=== PATIENT | male | born 1995 | race Asian ===

== ENCOUNTER 2018-02-18 14:20 | Inpatient (IN) | payer MEDICAID ==
[~2018-02-18] VITALS: Ht 172.7 cm; Wt 83.9 kg
[2018-02-18] MEDS ORDERED: NKM (14:29)
--- NOTE | 2018-02-18 14:31 | Emergency Room Report ---
History of Present Illness General Chief Complaint: Overdose Source: Patient, EMS Present Illness HPI Paramedics were called to residence. Initially the call was for altered and the mother was performing CPR on the patient as he was unresponsive. Paramedics found the patient had pinpoint pupils. IV was established and Narcan 2 mg given IV. The patient woke up after this. Accu-Chek in the field was 115. The patient admits to taking 2 [place]. He took them because he has back pain. He denies taking this medication for self-harm. He denies taking any other medication at this time. He denies seizures. The patient denies chest pain shortness of breath headache. He has chronic back pain. No dysuria. No head ache, rashes, NVD, cough, sore throat, extremity pain, trauma. Allergies: Coded Allergies: No Known Allergies (Unverified , 02/18/18) Patient History Past Medical History: see triage record Social History: Reports: smoking, drug use Social History Narrative lives with mother Reviewed Nursing Documentation: PMH: Agreed; PSxH: Agreed Review of Systems All Other Systems: negative except mentioned in HPI Physical Exam Vital Signs Date Time Temp Pulse Resp B/P (MAP) Pulse Ox O2 Delivery O2 Flow Rate FiO2 02/18/18 14:26 98.8 132 16 123/72 99 Non-Rebreather 12.0 98.8 Sp02 EP Interpretation: reviewed, normal, other - RA is 78% which is interpreted as low by me General Appearance: well appearing, no apparent distress, GCS 15 Head: normocephalic Eyes: bilateral eye normal inspection, bilateral eye PERRL ENT: moist mucus membranes - no tongue trauma Neck: supple Respiratory: lungs clear, decreased breath sounds Cardiovascular #1: tachycardia Cardiovascular #2: 2+ radial (R) Gastrointestinal: normal inspection, normal bowel sounds, non tender, no mass, non-distended Musculoskeletal: back normal, normal range of motion Neurologic: alert, oriented x3, motor strength/tone normal, DTRs symmetric, sensory intact, cerebellar normal, speech normal Psychiatric: no suicidal/homicidal ideation, depressed affect Skin: warm/dry, other - excoriations lower legs Medical Decision Making Diagnostic Impression: Primary Impression: Drug overdose Qualified Codes: T50.901A - Poisoning by unspecified drugs, medicaments and biological substances, accidental (unintentional), initial encounter Additional Impression: Right lower lobe pneumonia Qualified Codes: J69.0 - Pneumonitis due to inhalation of food and vomit ER Course Patient presents after a period of altered mentation which resolved with Narcan. Differential includes narcotic overdose, sedimentation overdose, polypharmacy overdose, electrolyte imbalance, aspiration. Evaluation with EKG EKG, chest x-ray and labs. Patient will be treated with IV hydration. He'll be observed on a cardiac/vascular sonographer for respiratory depression and Narcan will be repeated if necessary. He denies suicidal intent and psychiatric evaluation is not indicated at this time. EKG with ST. CXR with RLL infiltrate. WBC elevated. Lactate normal. Tox + for THC, neg for opiates and acetaminophen. Patient with hypoxia. Antibiotics begun for probable aspiration pneumonia. As tox neg, might have had other substances on board (or just not time for showing up in tox screen). Fluids given for possible early sepsis. Discussed with mother. Patient with variable compliance with O2. Patient admitted telemetry Dr. Lance. Laboratory Tests Test 02/18/18 14:23 02/18/18 15:15 White Blood Count 25.7 K/UL (4.8-10.8) *H Red Blood Count 5.36 M/UL (4.70-6.10) Hemoglobin 16.8 G/DL (14.2-18.0) Hematocrit 47.0 % (42.0-52.0) Mean Corpuscular Volume 88 FL (80-99) Mean Corpuscular Hemoglobin 31.4 PG (27.0-31.0) H Mean Corpuscular Hemoglobin Concent 35.8 G/DL (32.0-36.0) Red Cell Distribution Width 11.1 % (11.6-14.8) L Platelet Count 315 K/UL (150-450) Mean Platelet Volume 6.7 FL (6.5-10.1) Neutrophils (%) (Auto) % (45.0-75.0) Lymphocytes (%) (Auto) % (20.0-45.0) Monocytes (%) (Auto) % (1.0-10.0) Eosinophils (%) (Auto) % (0.0-3.0) Basophils (%) (Auto) % (0.0-2.0) Differential Total Cells Counted 100 Neutrophils % (Manual) 81 % (45-75) H Lymphocytes % (Manual) 7 % (20-45) L Monocytes % (Manual) 5 % (1-10) Eosinophils % (Manual) 0 % (0-3) Basophils % (Manual) 0 % (0-2) Band Neutrophils 7 % (0-8) Platelet Estimate Adequate Platelet Morphology Normal Polychromasia 1+ Sodium Level 143 MMOL/L (136-145) Potassium Level 3.9 MMOL/L (3.5-5.1) Chloride Level 103 MMOL/L (98-107) Carbon Dioxide Level 26 MMOL/L (21-32) Anion Gap 15 mmol/L (5-15) Blood Urea Nitrogen 18 mg/dL (7-18) Creatinine 1.4 MG/DL (0.55-1.30) H Estimate Glomerular Filtration Rate > 60 mL/min (>60) Glucose Level 85 MG/DL (74-106) Calcium Level 8.6 MG/DL (8.5-10.1) Total Bilirubin 0.5 MG/DL (0.2-1.0) Aspartate Amino Transferase (AST) 23 U/L (15-37) Alanine Aminotransferase (ALT) 38 U/L (12-78) Alkaline Phosphatase 73 U/L (46-116) Total Creatine Kinase 93 U/L (26-308) Total Protein 7.3 G/DL (6.4-8.2) Albumin 4.2 G/DL (3.4-5.0) Globulin 3.1 g/dL Albumin/Globulin Ratio 1.1 (1.0-2.7) Salicylates Level < 0.2 ug/mL (2.8-20) L Acetaminophen Level < 2 MCG/ML (10-30) L Serum Alcohol < 3 mg/dL Lactic Acid Level 1.90 mmol/L (0.4-2.0) Urine Opiates Screen Negative (NEGATIVE) Urine Barbiturates Screen Negative (NEGATIVE) Phencyclidine (PCP) Screen Negative (NEGATIVE) Urine Amphetamines Screen Negative (NEGATIVE) Urine Benzodiazepines Screen Negative (NEGATIVE) Urine Cocaine Screen Negative (NEGATIVE) Urine Marijuana (THC) Screen Positive (NEGATIVE) H EKG Diagnostic Results Rate: tachycardiac ST Segments: no acute changes Rhythm Strip Diag. Results EP Interpretation: yes Rhythm: no PVC's, no ectopy, other - ST Chest X-Ray Diagnostic Results Chest X-Ray Diagnostic Results : Chest X-Ray Ordered: Yes # of Views/Limited/Complete: 1 View Indication: Other EP Interpretation: Yes Interpretation: no effusion, no pneumothorax, other - RLL infiltrate Impression: Other Electronically Signed by: Electronically signed by Tacho Martinez MD Last Vital Signs Date Time Temp Pulse Resp B/P (MAP) Pulse Ox O2 Delivery O2 Flow Rate FiO2 02/18/18 22:40 Simple Mask 10.0 02/18/18 22:15 97.9 94 19 100/60 94 97.9 Status: improved Disposition: ADMITTED INPATIENT Condition: Serious Tacho Martinez MD Feb 18, 2018 14:30
--- NOTE | 2018-02-18 14:49 | Diagnostic Imaging Report ---
Indication: Dyspnea Comparison: None A single view chest radiograph was obtained. Findings: Hazy infiltrate noted in the right lung. Pneumonia suspected. Correlate clinically. Bones are unremarkable. No pleural effusion seen. IMPRESSION: Suspected pneumonia at the right lung base
[2018-02-18 14:53] VITALS: BP 123/72
[2018-02-18 15:14] LABS: HEMOGLOBIN 16.8 G/DL (14.2-18.0); MEAN CORPUSCULAR VOLUME 88 FL (80-99); PLATELET COUNT 315 K/UL (150-450); RED BLOOD COUNT 5.36 M/UL (4.70-6.10); RED CELL DISTRIBUTION WIDTH 11.1 % (11.6-14.8)
[2018-02-18 15:24] LABS: ANION GAP 15 mmol/L (5-15); BLOOD UREA NITROGEN 18 mg/dL (7-18); CALCIUM 8.6 MG/DL (8.5-10.1); CARBON DIOXIDE 26 MMOL/L (21-32); CHLORIDE 103 MMOL/L (98-107); CREATININE 1.4 MG/DL (0.55-1.30); POTASSIUM 3.9 MMOL/L (3.5-5.1); SODIUM 143 MMOL/L (136-145)
[2018-02-18 15:25] LABS: WHITE BLOOD COUNT 25.7 K/UL (4.8-10.8)
[2018-02-18] MEDS ORDERED: cefTRIAXone 1 GM in NS 55 ML IVPB ONE (15:30)
[2018-02-18 16:00] VITALS: BP 84/51
[2018-02-18 16:03] LABS: ALANINE AMINOTRANSFERASE 38 U/L (12-78); ALKALINE PHOSPHATASE 73 U/L (46-116); ASPARTATE AMINO TRANSFERASE 23 U/L (15-37); BILIRUBIN,TOTAL 0.5 MG/DL (0.2-1.0); CREATINE KINASE 93 U/L (26-308)
[2018-02-18 16:04] LABS: ALBUMIN 4.2 G/DL (3.4-5.0); ALBUMIN/GLOBULIN RATIO 1.1 (1.0-2.7)
[2018-02-18 19:00] VITALS: BP 97/61
[2018-02-18 22:15] VITALS: BP 100/60
[2018-02-18] MEDS ORDERED: Acetaminophen 500mg (ES) tab ORAL PRN (23:45)
[2018-02-19] VITALS: BP 96/69
[2018-02-19 04:00] VITALS: BP 113/78
[2018-02-19 07:34] LABS: ALANINE AMINOTRANSFERASE 29 U/L (12-78); ALBUMIN 3.2 G/DL (3.4-5.0); ALBUMIN/GLOBULIN RATIO 1.2 (1.0-2.7); ALKALINE PHOSPHATASE 54 U/L (46-116); ANION GAP 11 mmol/L (5-15); ASPARTATE AMINO TRANSFERASE 15 U/L (15-37); BILIRUBIN,TOTAL 0.9 MG/DL (0.2-1.0); BLOOD UREA NITROGEN 12 mg/dL (7-18); CARBON DIOXIDE 23 MMOL/L (21-32); CHLORIDE 104 MMOL/L (98-107); CREATININE 0.9 MG/DL (0.55-1.30); POTASSIUM 3.8 MMOL/L (3.5-5.1); SODIUM 138 MMOL/L (136-145)
[2018-02-19 07:37] LABS: BASOPHILS % (AUTO) 0.3 % (0.0-2.0); EOSINOPHILS % (AUTO) 0.8 % (0.0-3.0); HEMATOCRIT 34.4 % (42.0-52.0); HEMOGLOBIN 12.3 G/DL (14.2-18.0); MEAN CORPUSCULAR VOLUME 86 FL (80-99); MONOCYTES % (AUTO) 4.1 % (1.0-10.0); NEUTROPHILS % (AUTO) 84.7 % (45.0-75.0); PLATELET COUNT 212 K/UL (150-450); RED CELL DISTRIBUTION WIDTH 10.6 % (11.6-14.8); WHITE BLOOD COUNT 14.3 K/UL (4.8-10.8)
[2018-02-19 08:00] VITALS: BP 119/78
--- NOTE | 2018-02-19 10:58 | Consultation ---
Consult Note Consult Note HPI Paramedics were called to residence. Initially the call was for altered and the mother was performing CPR on the patient as he was unresponsive. Paramedics found the patient had pinpoint pupils. IV was established and Narcan 2 mg given IV. The patient woke up after this. Accu-Chek in the field was 115. The patient admits to taking 2 [place]. He took them because he has back pain. He denies taking this medication for self-harm. He denies taking any other medication at this time. He denies seizures. The patient denies chest pain shortness of breath headache. He has chronic back pain. No dysuria. No head ache, rashes, NVD, cough, sore throat, extremity pain, trauma. Allergies: Coded Allergies: No Known Allergies (Unverified , 02/18/18) interviewed examined data reviewed Assessment/Plan Dehydration Low BP on presentation Episode of unresponsiveness ! MJ abuse IV fluid observe on monitor Vaughn Arceo MD Feb 19, 2018 10:58
[2018-02-19 11:56] LABS: APPEARANCE,URINE CLEAR; BILIRUBIN, URINE NEGATIVE (NEGATIVE); COLOR,URINE PALE YELLOW; GLUCOSE, URINE (UA) NEGATIVE (NEGATIVE); KETONES,URINE 2+ (NEGATIVE); LEUKOCYTE ESTERASE ,URINE NEGATIVE (NEGATIVE); NITRITE,URINE NEGATIVE (NEGATIVE); PH,URINE 6 (4.5-8.0); PROTEIN,URINE NEGATIVE (NEGATIVE); UROBILINOGEN,URINE NORMAL MG/DL (0.0-1.0)
--- NOTE | 2018-02-19 11:57 | Consultation ---
Consult Note Assessment/Plan DICT # [id number] Anders Clark MD Feb 19, 2018 11:57
[2018-02-19 12:00] VITALS: BP 118/72
--- NOTE | 2018-02-19 12:02 | Consultation ---
History of Present Illness General Date patient seen: Feb 19, 2018 Chief Complaint: Overdose Present Illness HPI 22 yo male who has been in [place] for the past 14years. the pt was bib paramedics who were called to residence. the pt was altered and the mother was performing CPR on the patient as he was unresponsive. the pt admitted in er that he took [place] and was given Narcan. the pt denied to this md that he took any pills or drugs. the pt stated that he smokes mj regularly. the pt denied past psych hx. the pt denied taking psych meds. the pt stated that he was not suicidal nor homicidal. The pt denied depressive, manic or psychotic sxs. the pt is superficial and stated that he has a good life and he goes to [facility]. Allergies: Coded Allergies: No Known Allergies (Unverified , 02/18/18) Medication History Scheduled No Known Medications* (NKM - No Known Medications*), 0 ., (Reported) Patient History History Provided By: Patient, Medical Record, PMD Healthcare decision maker N Resuscitation status Full Code Advanced Directive on File Past Medical/Surgical History Past Medical/Surgical History: (1) Drug overdose (2) Right lower lobe pneumonia Review of Systems Psychiatric: Reports: emotional problems Physical Exam General Appearance: no apparent distress, alert Neurologic: alert, oriented x 3, responsive Last 24 Hour Vital Signs Date Time Temp Pulse Resp B/P (MAP) Pulse Ox O2 Delivery O2 Flow Rate FiO2 02/19/18 10:04 Room Air 02/19/18 08:00 96 02/19/18 08:00 98.1 96 16 119/78 (92) 93 98.1 02/19/18 04:00 87 02/19/18 04:00 97.5 87 17 113/78 (90) 93 97.5 02/19/18 00:00 97.5 86 17 96/69 (78) 98 97.5 02/19/18 00:00 107 02/18/18 23:00 95 02/18/18 22:40 Simple Mask 10.0 02/18/18 22:15 97.9 94 19 100/60 94 Simple Mask 10.0 97.9 02/18/18 22:15 97.9 94 19 100/60 94 Simple Mask 10.0 97.9 02/18/18 19:00 93 19 97/61 93 Simple Mask 10.0 02/18/18 16:00 112 10 84/51 99 Simple Mask 10.0 02/18/18 14:53 98.8 14 123/72 99 Simple Mask 10.0 98.8 02/18/18 14:49 130 14 Simple Mask 10.0 02/18/18 14:26 98.8 132 16 123/72 99 Non-Rebreather 12.0 98.8 Laboratory Tests Test 02/18/18 14:23 02/18/18 15:15 02/19/18 06:40 White Blood Count 25.7 K/UL (4.8-10.8) *H 14.3 K/UL (4.8-10.8) H Red Blood Count 5.36 M/UL (4.70-6.10) 4.00 M/UL (4.70-6.10) L Hemoglobin 16.8 G/DL (14.2-18.0) 12.3 G/DL (14.2-18.0) L Hematocrit 47.0 % (42.0-52.0) 34.4 % (42.0-52.0) L Mean Corpuscular Volume 88 FL (80-99) 86 FL (80-99) Mean Corpuscular Hemoglobin 31.4 PG (27.0-31.0) H 30.7 PG (27.0-31.0) Mean Corpuscular Hemoglobin Concent 35.8 G/DL (32.0-36.0) 35.7 G/DL (32.0-36.0) Red Cell Distribution Width 11.1 % (11.6-14.8) L 10.6 % (11.6-14.8) L Platelet Count 315 K/UL (150-450) 212 K/UL (150-450) Mean Platelet Volume 6.7 FL (6.5-10.1) 6.6 FL (6.5-10.1) Neutrophils (%) (Auto) % (45.0-75.0) 84.7 % (45.0-75.0) H Lymphocytes (%) (Auto) % (20.0-45.0) 10.0 % (20.0-45.0) L Monocytes (%) (Auto) % (1.0-10.0) 4.1 % (1.0-10.0) Eosinophils (%) (Auto) % (0.0-3.0) 0.8 % (0.0-3.0) Basophils (%) (Auto) % (0.0-2.0) 0.3 % (0.0-2.0) Differential Total Cells Counted 100 Neutrophils % (Manual) 81 % (45-75) H Lymphocytes % (Manual) 7 % (20-45) L Monocytes % (Manual) 5 % (1-10) Eosinophils % (Manual) 0 % (0-3) Basophils % (Manual) 0 % (0-2) Band Neutrophils 7 % (0-8) Platelet Estimate Adequate Platelet Morphology Normal Polychromasia 1+ Sodium Level 143 MMOL/L (136-145) 138 MMOL/L (136-145) Potassium Level 3.9 MMOL/L (3.5-5.1) 3.8 MMOL/L (3.5-5.1) Chloride Level 103 MMOL/L (98-107) 104 MMOL/L (98-107) Carbon Dioxide Level 26 MMOL/L (21-32) 23 MMOL/L (21-32) Anion Gap 15 mmol/L (5-15) 11 mmol/L (5-15) Blood Urea Nitrogen 18 mg/dL (7-18) 12 mg/dL (7-18) Creatinine 1.4 MG/DL (0.55-1.30) H 0.9 MG/DL (0.55-1.30) Estimat Glomerular Filtration Rate > 60 mL/min (>60) > 60 mL/min (>60) Glucose Level 85 MG/DL (74-106) 83 MG/DL (74-106) Calcium Level 8.6 MG/DL (8.5-10.1) 8.0 MG/DL (8.5-10.1) L Total Bilirubin 0.5 MG/DL (0.2-1.0) 0.9 MG/DL (0.2-1.0) Aspartate Amino Transf (AST/SGOT) 23 U/L (15-37) 15 U/L (15-37) Alanine Aminotransferase (ALT/SGPT) 38 U/L (12-78) 29 U/L (12-78) Alkaline Phosphatase 73 U/L (46-116) 54 U/L (46-116) Total Creatine Kinase 93 U/L (26-308) Total Protein 7.3 G/DL (6.4-8.2) 5.8 G/DL (6.4-8.2) L Albumin 4.2 G/DL (3.4-5.0) 3.2 G/DL (3.4-5.0) L Globulin 3.1 g/dL 2.6 g/dL Albumin/Globulin Ratio 1.1 (1.0-2.7) 1.2 (1.0-2.7) Salicylates Level < 0.2 ug/mL (2.8-20) L Acetaminophen Level < 2 MCG/ML (10-30) L Serum Alcohol < 3 mg/dL Lactic Acid Level 1.90 mmol/L (0.4-2.0) Urine Opiates Screen Negative (NEGATIVE) Urine Barbiturates Screen Negative (NEGATIVE) Phencyclidine (PCP) Screen Negative (NEGATIVE) Urine Amphetamines Screen Negative (NEGATIVE) Urine Benzodiazepines Screen Negative (NEGATIVE) Urine Cocaine Screen Negative (NEGATIVE) Urine Marijuana (THC) Screen Positive (NEGATIVE) H Height (Feet): 5 Height (Inches): 8.00 Weight (Pounds): 185 Medications Current Medications Medications (Trade) Dose Ordered Sig/Renetta Route PRN Reason Start Time Stop Time Status Last Admin Dose Admin Acetaminophen (Tylenol) 500 mg Q4H PRN ORAL Mild Pain/Temp > 100.5 02/18/18 23:45 03/20/18 23:44 02/19/18 08:41 Dextrose/ Electrolytes 1,000 ml @ 75 mls/hr [id number] IV 02/19/18 12:00 03/21/18 11:59 Assessment/Plan Problem List: (1) Substance abuse ICD Codes: F19.10 - Other psychoactive substance abuse, uncomplicated SNOMED: 44129251 Status: stable Assessment/Plan no meds at this time the pt is not at imminent danger to self dc the sitter. the mother is maltese speaking. the nurse will speak to Wally Espinosa MD Feb 19, 2018 12:02
[2018-02-19] MEDS ORDERED: LEVAQUIN500 MG ORAL (15:33)
--- NOTE | 2018-02-19 16:34 | Consultation ---
Consult Note Consult Note Heme/Onc Consult DOS: 02/19/2018 NITHIN QUINN: C[place] RFC: Leukocytosis HPI 22 y old male, decent, apparently paramedics were called to residence. Initially the call was for altered and the mother was performing CPR on the patient as he was unresponsive. Paramedics found the patient had pinpoint pupils. IV was established and Narcan 2 mg given IV. The patient woke up after this. Accu-Chek in the field was 115. The patient admits to taking 2 [place]. He took them because he has back pain. He denies taking this medication for self-harm. denies taking any other medication at this time. He denies seizures. The patient denies chest pain shortness of breath headache. He has chronic back pain. No dysuria. No head ache, rashes, NVD, cough, sore throat, extremity pain, trauma. Noted to have leukocytosis and heme was consulted. Allergies: No Known Allergies (Unverified , 02/18/18) Patient History Past Medical History: see triage record Social History: Reports: smoking, drug use Social History Narrative lives with mother Reviewed Nursing Documentation: PMH: Agreed; PSxH: Agreed ER ROS - General Review of Systems All Other Systems: negative except mentioned in HPI ER Physical Exam - General Physical Exam Last 24 Hour Vital Signs Date Time Temp Pulse Resp B/P (MAP) Pulse Ox O2 Delivery O2 Flow Rate FiO2 02/19/18 12:00 86 02/19/18 12:00 98.1 81 16 118/72 (87) 92 98.1 02/19/18 10:04 Room Air 02/19/18 08:00 96 02/19/18 08:00 98.1 96 16 119/78 (92) 93 98.1 02/19/18 04:00 87 02/19/18 04:00 97.5 87 17 113/78 (90) 93 97.5 02/19/18 00:00 97.5 86 17 96/69 (78) 98 97.5 02/19/18 00:00 107 02/18/18 23:00 95 02/18/18 22:40 Simple Mask 10.0 02/18/18 22:15 97.9 94 19 100/60 94 Simple Mask 10.0 97.9 02/18/18 22:15 97.9 94 19 100/60 94 Simple Mask 10.0 97.9 02/18/18 19:00 93 19 97/61 93 Simple Mask 10.0 Sp02 EP Interpretation: reviewed, normal, other - RA is 78% which is interpreted as low by me General Appearance: well appearing Head: normocephalic Eyes: bilateral eye normal inspection, bilateral eye PERRL ENT: moist mucus membranes - no tongue trauma Neck: supple Respiratory: lungs clear, low breath sounds Cardiovascular #1: tachycardia Gastrointestinal: normal inspection, normal bowel sounds, non tender, no mass and nd Musculoskeletal: back normal, normal range of motion Neurologic: alert, oriented x3, motor strength/tone normal, DTRs symm Psychiatric: no suicidal/homicidal ideation, depressed affect Skin: warm/dry, other - excoriations lower legs Laboratory Tests Test 02/19/18 06:40 02/19/18 11:47 White Blood Count 14.3 K/UL (4.8-10.8) H Red Blood Count 4.00 M/UL (4.70-6.10) L Hemoglobin 12.3 G/DL (14.2-18.0) L Hematocrit 34.4 % (42.0-52.0) L Mean Corpuscular Volume 86 FL (80-99) Mean Corpuscular Hemoglobin 30.7 PG (27.0-31.0) Mean Corpuscular Hemoglobin Concent 35.7 G/DL (32.0-36.0) Red Cell Distribution Width 10.6 % (11.6-14.8) L Platelet Count 212 K/UL (150-450) Mean Platelet Volume 6.6 FL (6.5-10.1) Neutrophils (%) (Auto) 84.7 % (45.0-75.0) H Lymphocytes (%) (Auto) 10.0 % (20.0-45.0) L Monocytes (%) (Auto) 4.1 % (1.0-10.0) Eosinophils (%) (Auto) 0.8 % (0.0-3.0) Basophils (%) (Auto) 0.3 % (0.0-2.0) Sodium Level 138 MMOL/L (136-145) Potassium Level 3.8 MMOL/L (3.5-5.1) Chloride Level 104 MMOL/L (98-107) Carbon Dioxide Level 23 MMOL/L (21-32) Anion Gap 11 mmol/L (5-15) Blood Urea Nitrogen 12 mg/dL (7-18) Creatinine 0.9 MG/DL (0.55-1.30) Estimat Glomerular Filtration Rate > 60 mL/min (>60) Glucose Level 83 MG/DL (74-106) Calcium Level 8.0 MG/DL (8.5-10.1) L Total Bilirubin 0.9 MG/DL (0.2-1.0) Aspartate Amino Transf (AST/SGOT) 15 U/L (15-37) Alanine Aminotransferase (ALT/SGPT) 29 U/L (12-78) Alkaline Phosphatase 54 U/L (46-116) Total Protein 5.8 G/DL (6.4-8.2) L Albumin 3.2 G/DL (3.4-5.0) L Globulin 2.6 g/dL Albumin/Globulin Ratio 1.2 (1.0-2.7) Urine Color Pale yellow Urine Appearance Clear Urine pH 6 (4.5-8.0) Urine Specific [place] 1.010 (1.005-1.035) Urine Protein Negative (NEGATIVE) Urine Glucose (UA) Negative (NEGATIVE) Urine Ketones 2+ (NEGATIVE) H Urine Blood Negative (NEGATIVE) Urine Nitrite Negative (NEGATIVE) Urine Bilirubin Negative (NEGATIVE) Urine Urobilinogen Normal MG/DL (0.0-1.0) Urine Leukocyte Esterase Negative (NEGATIVE) Urine RBC 0 /HPF (0 - 0) Urine WBC 0-2 /HPF (0 - 0) Urine Squamous Epithelial Cells Occasional /LPF Urine Bacteria Occasional /HPF (NONE) Assess and Recs: # Leukocytosis is likely related to overdose, stress reaction. Could also be due to thc use --> smear reviewed, no abnml noted, no blasts --> meds reviewed as well, no steriods given --> improving --> recheck in 1 week # Drug overdose --> psych outpatient monitoring # Right lower lobe pneumonia, potentially aspiration pna --> on abx as per id # Dehydration -- given iVF Greatly appreciate consultation! Tin Holt MD Feb 19, 2018 16:34
--- NOTE | 2018-02-19 17:00 | Consultation ---
DATE OF CONSULTATION: 02/19/2018 PULMONARY CONSULTATION CONSULTING PHYSICIAN: Anders Clark M.D. REFERRING PHYSICIAN: Kd Lance M.D. REASON FOR CONSULTATION: Possible overdose, history of pneumonia. HISTORY OF PRESENT ILLNESS: The patient is a 22-year-old male with unknown prior medical history, who was noted to be altered. His mother performed CPR. The patient was unresponsive. Paramedics arrived on the scene. The patient had pinpoint pupils. He was given Narcan with improvement in his mental status. He admitted to taking 2 [place]. At the time of my evaluation, he has no remembrance of the incident and denies any drug use other than marijuana. He also smokes cigarettes. Denies alcohol use. Currently, he states he is tired and wants to go home, but has no specific complaints. He denies any suicidal ideation, homicidal ideation, audiovisual hallucinations. He denies any depression. Denies any fevers, chills, headache, dizziness, nausea, vomiting, diarrhea, constipation, abdominal pain, or urinary complaints. Since presenting to the hospital, he has been hemodynamically stable except for mild periods of hypotension. He has been saturating well on room air. His labs were initially remarkable for leukocytosis with white count of 25.7, which has since improved. He also had acute kidney injury with creatinine of 1.4, which has since resolved. He has evidence of protein-calorie malnutrition. His U-tox was positive for marijuana. Chest x-ray done in the emergency department showed an infiltrate at the right base. PAST MEDICAL HISTORY: None. PAST SURGICAL HISTORY: None. ALLERGIES: No known drug allergies. MEDICATIONS: Prior to admission, medications none. SOCIAL HISTORY: He is a current daily smoker. Smokes marijuana as well. Denies other drugs or alcohol. FAMILY HISTORY: Noncontributory. REVIEW OF SYSTEMS: Negative other than history of present illness. PHYSICAL EXAMINATION: VITAL SIGNS: Temperature 98.1, pulse 96, blood pressure 119/78, respiratory rate 16, and saturating 96% on room air. GENERAL: He is a well-developed and well-nourished male in no acute distress. Awake, alert, and oriented x3. HEENT: Normocephalic and atraumatic. Oropharynx is clear. Moist mucous membranes. NECK: Supple without lymphadenopathy or JVD. CHEST: Clear to auscultation bilaterally. No wheezing, rales, or rhonchi. HEART: Regular rate and rhythm. No murmurs, rubs, or gallops. ABDOMEN: Soft, nontender, and nondistended. EXTREMITIES: No cyanosis, clubbing, or edema. ANCILLARY DATA: White count 25.7 on presentation and 14.3 now, hemoglobin 12.3, hematocrit 34, and platelet count 212,000. Sodium 138, potassium 3.8, chloride 104, bicarbonate 23, BUN of 12, creatinine 0.9, glucose 83, lactic acid 1.9, calcium 8.0. LFTs within normal limits. Total protein 5.8. Albumin 3.2. Marijuana screen is positive. Chest x-ray, some atelectasis versus infiltrate at the right base. ASSESSMENT: The patient is a 22-year-old male smoker with history of marijuana use as well, presenting with loss of consciousness and CPR given at the field. His symptoms improved with Narcan, likely secondary to opiate ingestion. He also has a right lower lobe infiltrate and leukocytosis, which has improved with antibiotic treatment. PROBLEM LIST: 1. Altered mental status, likely secondary to opiates, improved with Narcan. 2. Right lower lobe infiltrate, pneumonia, possible aspiration. 3. Marked leukocytosis, likely secondary to above, improved. 4. Acute kidney injury, likely secondary to dehydration and prerenal azotemia, resolved. 5. History of marijuana use. TREATMENT PLAN: 1. Optimize pulmonary hygiene/mobilize as tolerated. 2. P.r.n. O2. 3. Continue Levaquin as this was given in the ER, if any signs of worsening respiratory infection, would add Flagyl for aspiration coverage. 4. Monitor mental status. 5. Consider social work and psychiatry evaluation. 6. Monitor volumes and renal function, continue IV fluids, follow renal recommendations. 7. DVT prophylaxis, heparin subcutaneous. 8. Infiltrates to be followed to resolution. We will get a repeat chest x-ray as an outpatient in 1 week. If persistent infiltrate at that point, we would consider CT scan of the chest. Dr. Lance, thank you for allowing me to assist in the care of your patient. If I may be of any assistance in the future, please do not hesitate to ask. Anders Clark M.D. DR: Jc JOB#: [id number] CC:
--- NOTE | 2018-02-19 18:29 | Cardiology Report ---
APPROVED REPORT EKG Measurement Heart [id number] Sinus tachycardia Otherwise normal ECG
--- NOTE | 2018-02-19 20:15 | Consultation ---
DATE OF CONSULTATION: 02/19/2018 INFECTIOUS DISEASE CONSULTATION CONSULTING PHYSICIAN: Yunior Santana M.D. PRIMARY ATTENDING PHYSICIAN: Kd Lance M.D. REASON FOR CONSULT: Pneumonia. HISTORY OF PRESENT ILLNESS: The patient is a 22-year-old male, admitted last evening as he was found at home with altered mental status. When paramedics came, mother was doing CPR. He was unresponsive. The patient was given and the patient woke up. The patient admits taking [place] because of back pain, but today he denies taking any medication. He was found to have leukocytosis and infiltrate in chest x-ray. SOCIAL HISTORY: Denies drug abuse. Single. Student. ALLERGIES: No known drug allergies. MEDICATIONS: Getting Tylenol. Got a dose of ceftriaxone and Levaquin in the ER. REVIEW OF SYSTEMS: The patient does not remember anything that happened. He states that the last thing he was remembering is going to bed and found him in the hospital. He has some soreness in the right lower chest. He does not have any fever, coughing, shortness of breath, nausea, vomiting, or dysuria. PHYSICAL EXAMINATION: VITAL SIGNS: Temperature 98.1, pulse 96, and blood pressure 119/78. GENERAL APPEARANCE: Well developed, awake, alert, and oriented x3. HEAD AND NECK: Moore conjunctivae. HEART: S1 and S2, regular. LUNGS: Clear. ABDOMEN: Soft and nontender. EXTREMITIES: He has no edema. LABORATORY AND DIAGNOSTIC DATA: WBC today is 14.3 coming down from 25.7, hemoglobin 12.3, hematocrit 34.4, platelets 212,000. Sodium 138, potassium 3.8, chloride 104, bicarbonate 23, BUN 12, creatinine 0.9, glucose 83, albumin 3.2. Urine toxicology was positive for marijuana. Chest x-ray showed right lower lobe infiltrate. IMPRESSION: Right lower lobe pneumonia likely secondary to aspiration, drug overdose. RECOMMENDATION: We will continue with ceftriaxone. At the end of my exam, I thank Dr. Lance for involving me in the care of this patient. Yunior Santana M.D. DR: CARMELINA JOB#: [id number] CC:
[2018-02-19] MEDS ORDERED: Heparin 5000 units/ml inj SUBQ SCH (21:00)
--- NOTE | 2018-02-20 08:15 | History and Physical Report ---
DATE OF ADMISSION: 02/18/2018 NOTE: POOR AUDIO HISTORY OF PRESENT ILLNESS: The patient is admitted with history of drug abuse CPR, currently he took two [place] for pain and was admitted for pneumonia, leukocytosis, hypoxic, on non-rebreather and tachycardia in the ER. He responded to Narcan. He denied any suicide attempt. He states that he has some headache and nasal congestion and some cough and took marijuana yesterday and that is all he said, again he denies overdose. Denies taking any medication. PAST MEDICAL HISTORY: None. PAST SURGICAL HISTORY: None. MEDICATIONS: None. FAMILY HISTORY: Noncontributory. SOCIAL HISTORY: Denies history of alcohol abuse. Does have a history of marijuana use and has a history of smoking. REVIEW OF SYSTEMS: HEENT: The patient does have some headaches. Does have some nasal congestion. CARDIOVASCULAR: Denies chest pain. CHEST: He reports some nasal congestion and cough for a couple of days. EXTREMITIES: Denies any significant pain. CENTRAL NERVOUS SYSTEM: No change in vision or speech pattern. PHYSICAL EXAMINATION: VITAL SIGNS: Temperature 97.2, pulse is , and blood pressure 132/70. HEENT: PERRLA. NECK: Supple. CHEST: Clear to auscultation. GASTROINTESTINAL: Soft, nontender, and nondistended. No organomegaly. EXTREMITIES: No edema. Reflexes on both sides. NEUROLOGIC: Alert and oriented x4. LABORATORY DATA: WBC 27,000, possible pneumonia. ASSESSMENT AND PLAN: 1. Pneumonia. 2. Drug abuse, status post unresponsiveness, status post CPR per . I have asked Dr. Rosenberg, Dr. Ambrosio, Dr. Clark, , Dr. Arceo, and Dr. Santana to see the patient for the above-mentioned diagnoses and treatment. Kd Lance M.D. DR: MULU JOB#: [id number] CC:
[2018-02-20] MEDS ORDERED: Levofloxacin 500mg tab ORAL SCH (09:00)
--- NOTE | 2018-02-20 11:36 | Discharge Summary ---
Discharge Summary Discharge Summary _ DATE OF ADMISSION: 02/18/2018 DATE OF DISCHARGE: 02/19/2018 CONSULTANTS: Dr. Brad Areco [facility]SE: Patient is a 22-year-old male, was taken by EMS to ED as patient was found altered and unresponsive at home. Paramedics found the patient with pinpoint pupils. IV was established and was given Narcan 2 mg by IV. Patient eventually woke up. Accu-Chek in the field was 115. Patient then admitted to taking 2 [place] tablets for back pain. He denied any self harm. Denied chest pain or shortness of breath. Denied dysuria. On evaluation at ED, patient was in nonrebreather mask. On room air, O2 saturation drops to 78%. GCS 15. Blood work showed elevated WBC 25. Lactate was normal. Urine toxicology was positive for marijuana, negative for opiates, alcohol and acetaminophen. He was given IV hydration. EKG showed sinus tachycardia. Chest x-ray showed right lower lung infiltrate. He was started on IV antibiotics for possible aspiration pneumonia. He was then admitted for drug overdose and pneumonia. He was placed with one-to-one sitter for patient's safety. Psychiatric evaluation was done. He was assessed to be not an imminent danger to self or to others. Sitter was discontinued. Patient was alert and oriented. Leukocytosis possibly reactive. He was cleared for discharge to continue antibiotics at home, and to follow-up as outpatient. FINAL DIAGNOSES: Drug overdose Possible aspiration pneumonia Altered mental status, likely secondary to opiates, improved with Narcan Acute kidney injury Substance abuse DISPOSITION: Patient was discharged home. DISCHARGE MEDICATIONS: Continue with 500 mg levofloxacin po daily for 4 more days. DISCHARGE INSTRUCTIONS: Follow up with PCP in a week. Patient was counselled against substance abuse. I have been assigned to dictate discharge summary on this account, and I was not involved in the patient's management. Katrin Skelton NP Feb 20, 2018 11:36
== END 2018-02-19 15:58 | disposition home or self-care (01) | DRG 812 ==
LOC: EDBD 14:20 → EMR 14:52 → 2E 16:26 → EDBEDREQ 17:37 → EDBEDREQSVC 18:21 → EDBEDREQ 18:21 → 2E 02-19 11:48
DX: T40.2X1A Poisoning by other opioids, accidental (unintentional), initial encounter (principal); J69.0 Pneumonitis due to inhalation of food and vomit; N17.9 Acute kidney failure, unspecified; E46 Unspecified protein-calorie malnutrition; I95.9 Hypotension, unspecified; E86.0 Dehydration; G89.29 Other chronic pain; M54.9 Dorsalgia, unspecified; F12.10 Cannabis abuse, uncomplicated; F17.210 Nicotine dependence, cigarettes, uncomplicated; D72.829 Elevated white blood cell count, unspecified; R41.82 Altered mental status, unspecified; Z68.28 Body mass index [BMI] 28.0-28.9, adult; Y92.009 Unspecified place in unspecified non-institutional (private) residence as the place of occurrence of the external cause
CPT/HCPCS: 36415; 71045; 80053; 80307; 80329; 81001; 82550; 83605; 85007; 85025; 87040; 93005; 96361; 96365; 96367; 99285

== ENCOUNTER 2018-04-28 16:43 | Emergency (ER) | payer SELFPAY ==
[~2018-04-28] VITALS: Ht 172.7 cm; Wt 77.1 kg
[~2018-04-28 16:43] MED LIST: LEVAQUIN500 MG ORAL; NKM
[2018-04-28] MEDS ORDERED: Isovue-300 100ml vial INJ PRN (17:30)
[2018-04-28] MEDS ORDERED: Ketorolac 30mg Inj IM ONE (17:45)
--- NOTE | 2018-04-28 17:59 | NUR ---
ED Nurse Note:pt. came s/p fall c/o left ribs pain, blood was sent to labs and pain meds given
[2018-04-28 18:01] VITALS: BP 137/82
[2018-04-28 18:14] LABS: HEMATOCRIT 40.3 % (42.0-52.0); HEMOGLOBIN 14.5 G/DL (14.2-18.0); MEAN CORPUSCULAR VOLUME 86 FL (80-99); PLATELET COUNT 297 K/UL (150-450); RED BLOOD COUNT 4.69 M/UL (4.70-6.10); WHITE BLOOD COUNT 19.2 K/UL (4.8-10.8)
[2018-04-28 18:26] LABS: ANION GAP 13 mmol/L (5-15); BLOOD UREA NITROGEN 12 mg/dL (7-18); CARBON DIOXIDE 26 MMOL/L (21-32); CHLORIDE 101 MMOL/L (98-107); CREATININE 0.8 MG/DL (0.55-1.30); POTASSIUM 3.9 MMOL/L (3.5-5.1); SODIUM 139 MMOL/L (136-145)
--- NOTE | 2018-04-28 18:58 | NUR ---
ED Nurse Note:pt. came back from abd CT scan
--- NOTE | 2018-04-28 19:10 | NUR ---
ED Nurse Note: Received Pt and report from day shift. Pt is AO x 4times ,VSS, on room air when visited. Urine sample collected sent to lab.
[2018-04-28] MEDS ORDERED: Lidocaine 1% 10mg/ml/Epi 0.005mg/ml 30ml vial INJ ONE (19:30)
--- NOTE | 2018-04-28 20:20 | NUR ---
ED Nurse Note: Wound cleaned with NS PA suture the wound.
[2018-04-28] MEDS ORDERED: Bacitracin Oint UD TOPIC ONE (20:30)
[2018-04-28] MEDS ORDERED: Tetanus/Diptheria/Pertussis Vaccine 0.5ml Syr IM ONE (20:30)
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
[2018-04-28] MEDS ORDERED: TYLENOL325 MG ORAL (20:38)
[2018-04-28] MEDS ORDERED: BACITRACIN-P28.35 GM TP (20:38)
[2018-04-28 20:40] VITALS: BP 129/77
[2018-04-28 20:50] VITALS: BP 129/77
--- NOTE | 2018-04-28 20:50 | NUR ---
ED Nurse Note: Pt cleared DC by JOSE JUAN. Pt is AO x 4times, VSS, on room air no distress. Belongings given to Pt. ID bend removed. DC and Meds instructions given to Pt, Pt understood well. Pt walked out unit with steady gait with mother.
== END 2018-04-28 20:50 | disposition home or self-care (01) ==
LOC: EMR 17:14
DX: S01.81XA Laceration without foreign body of other part of head, initial encounter (principal); S20.212A Contusion of left front wall of thorax, initial encounter; S70.02XA Contusion of left hip, initial encounter; V18.0XXA Pedal cycle driver injured in noncollision transport accident in nontraffic accident, initial encounter; Y93.55 Activity, bike riding; Y92.9 Unspecified place or not applicable; D72.829 Elevated white blood cell count, unspecified; Z23 Encounter for immunization
CPT/HCPCS: 12052; 36415; 71260; 74177; 80048; 80307; 85007; 85025; 90471; 90715; 96372; 99284; J1885; Q9967